=== PATIENT | female | born 1975 | race African-American/Black ===

== ENCOUNTER 2019-07-26 15:34 | Emergency (ER) | payer OTHER ==
[2019-07-26 15:38] VITALS: BP 120/74; PULSE 61; TEMP 97.8; BMI 29.8
[2019-07-26] MEDS ORDERED: IBUPROFEN 600 MG TABLET (FP) PO ONE ×2 (15:51→16:02)
--- NOTE | 2019-07-26 16:01 | PDOC ---
History of Present Illness - General Chief Complaint: Ear Problem Stated Complaint: EAR PROBLEM Time Seen by Provider: 07/26/19 15:48 History Source: Patient Exam Limitations: No Limitations - History of Present Illness Initial Comments: 07/26/19 16:02 Patient is a 43-year-old female who presents the ED with complaint of right ear pain that started acutely while at work. She denies any tinnitus. She states that the pain became more severe after the patient put peroxide in her ear. She denies any fevers or chills. She denies any trauma. The patient states she does not typically have ear problems. She denies any recent illness or travel. Past History - Past Medical History Allergies/Adverse Reactions: Allergies Allergy/AdvReac Type Severity Reaction Status Date / Time No Known Allergies Allergy Verified 07/26/19 15:38 Home Medications: Ambulatory Orders Fluticasone Propionate [Flonase Allergy Relief] 2 sprays NS DAILY #1 bottle 03/06 Asthma: No Cancer: No Cardiac Disorders: No COPD: No Diabetes: No HTN: No Seizures: No Thyroid Disease: No - Psycho Social/Smoking Cessation Hx Smoking Status: No Smoking History: Never smoked Number of Cigarettes Smoked Daily: 0 Hx Alcohol Use: No Drug/Substance Use Hx: No Hx Substance Use Treatment: No Review of Systems - Review of Systems Comments:: 07/26/19 16:04 - Review of Systems Able to Perform ROS?: Yes Constitutional: No: Fever, Chills, Loss of Appetite, Night Sweats, Weakness HEENTM: No: Eye Pain, Vision changes, Throat Pain, Throat Swelling, Mouth Pain , Difficulty Swallowing; positive: Ear Pain Respiratory: No: Cough, Shortness of Breath, Wheezing, Sputum Production Cardiac (ROS): No: Chest Pain, Chest Tightness, Palpitations, Irregular Heart Beat, Edema ABD/GI: No: Nausea, Vomiting, Abdominal Pain, Diarrhea : No Dysuria, No Hematuria, No Frequency, No Urgency Musculoskeletal: No: Muscle Pain, Back Pain, Joint Pain, Muscle Weakness, Neck Pain Integumentary: No: Lesions, Rash Neurological: No: Headache, Numbness, Tingling, Weakness, Speech Difficulties *Physical Exam - Vital Signs Last Vital Signs Temp Pulse Resp BP Pulse Ox 97.8 F 61 18 120/74 97 07/26/19 15:36 07/26/19 15:36 07/26/19 15:36 07/26/19 15:36 07/26/19 15:36 - Physical Exam 07/26/19 16:05 - Physical Exam General Appearance: Nourished, Appropriately Dressed, No Distress HEENT: EOMI, Normal Voice, No Pharyngeal Erythema, No Muffled/Hoarse voice, No Tonsillar Exudate, No Tonsillar Erythema, No Nasal Congestion, No Rhinorrhea, Hearing Grossly Normal, No TM Dullness, No TM Erythema, no canal erythema or discharge. Bilateral TMs with effusion without infection. Left effusion is worse than right. No evidence of TM rupture. Neck: Supple, No Lymphadenopathy (R), No Lymphadenopathy (L), No Rigidity, No Decreased range of motion Respiratory/Chest: Lungs Clear, Normal Breath Sounds. No Respiratory Distress, No Accessory Muscle Use Cardiovascular: Regular Rhythm, Regular Rate, S1, S2 Musculoskeletal: Normal Inspection. No Decreased Range of Motion Extremity: Normal Capillary Refill, Normal Inspection Integumentary: Normal Color, Dry. No Rash Neurologic: commis chef II-XII NML intact, Fully Oriented, Alert, Normal Mood/Affect, Normal Response Medical Decision Making - Medical Decision Making 07/26/19 15:57 Assessment: Patient is a 43-year-old female with right-sided otalgia. Plan: I have made the patient aware that there is no evidence of infection in her right ear. She does have bilateral effusions without infection which we will treat with a nasal spray. She can take ibuprofen for pain. She should follow- up with ENT for further evaluation and treatment and in a.m. has been provided today. She understands and agrees with the treatment and plan and the patient is stable for discharge. Discharge - Discharge Information Problems reviewed: Yes Clinical Impression/Diagnosis: Otalgia, right ear Condition: Stable Disposition: HOME - Additional Discharge Information Prescriptions: Fluticasone Propionate [Flonase Allergy Relief] 2 sprays NS DAILY #1 bottle - Follow up/Referral Referrals: Flex Ramirez [Primary Care Provider] - Kan Mcmahon MD [Staff Physician] - 1 week - Patient Discharge Instructions Patient Printed Discharge Instructions: DI for Ear Pain-Adult Additional Instructions: Get plenty of rest. Take ibuprofen for pain. Use the nasal spray to help with the fluid buildup in your ears as well as your nose. Follow-up with your primary doctor within 1 day for repeat evaluation. You should see an ENT doctor for further evaluation and any them has been given to you today. - Post Discharge Activity Work/Back to School Note: Back to Work
== END 2019-07-26 16:19 | disposition home or self-care (01) ==
LOC: JERFT 15:34
DX: H92.03 Otalgia, bilateral (principal)
CPT/HCPCS: 99282-25